=== PATIENT | male | born 1935 | race Caucasian/White ===

== ENCOUNTER → 2019-06-03 | Outpatient (CLI) | payer MEDICARE, BC ==
[~2019-06-03] MED LIST: ALEVE220 MG PO; ASPI81CH; ASPI81CH PO; ATOR10 PO; ATOR20; ENOX40I SC; ERGO400 PO; HYDCHL12.5 PO; HYDCHL25; Hair, Skin & N1 EACH PO; LISI5; METO25ER; NATURAL LUTEIN20 MG PO; PROM25 PO; ROXICODONE5 MG PO; TOCO400 PO; TRAM50 PO; VITAMIN B122500 MC1 PO
[2019-06-06 15:07] LABS: A/G RATIO 1.6 (0.7-1.7); ALBUMIN 4.2 g/dL (2.9-4.4); ALPHA-1-GLOBULIN 0.2 g/dL (0.0-0.4); ALPHA-2-GLOBULIN 0.6 g/dL (0.4-1.0); BETA GLOBULIN 1.1 g/dL (0.7-1.3); GAMMA GLOBULIN 0.8 g/dL (0.4-1.8); GLOBULIN, TOTAL 2.7 g/dL (2.2-3.9); M-SPIKE Not Observed g/dL (Not Observed); PROTEIN, TOTAL, SERUM 6.9 g/dL (6.0-8.5)
[2019-06-07 11:07] LABS: M-SPIKE, % Not Observed % (Not Observed)
[2019-06-14 13:07] LABS: PROTEIN,TOTAL,URINE 4.8 mg/dL (Not Estab.)
== END | disposition home or self-care (01) ==
LOC: LAB EV 10:55 → LAB SHORT 10:55
PROVIDERS: Internal Medicine
DX: R82.90 Unspecified abnormal findings in urine (principal)
CPT/HCPCS: 36415; 81050; 84165; 84166; 86335

== ENCOUNTER 2021-09-04 10:46 | Observation (INO) | payer MEDICARE, BC ==
[~2021-09-04] VITALS: Ht 177.8 cm; Wt 92.0 kg
--- NOTE | 2021-09-04 13:38 | NUR ---
TO [facility] FOR PACEMAKER IMPLANT.
--- NOTE | 2021-09-04 16:10 | NUR ---
PATIENT CAME FROM [facility] TODAY 09/04/21 AT 1530. POD 0 PACEMAKER PLACED IN LEFT SHOULDER PATIENT IS ALERT AND ORIENTED X4. VS ARE WNL AND IS ON RA. PATIENT DENIES PAIN AT THIS TIME. PATIENT AND VERBALIZED UNDERSTANDING OF NOT RAISING THE LEFT ARM ABOVE THE HEAD. GAUZE AND TEGADERM ARE C/D/I ON HIS LEFT SHOULDER. PATIENT IS ABLE TO MOVE FINGERS AND TOES WHEN ASKED. PATIENT IS TOLERATING PO INTAKE. CALL LIGHT WITHIN REACH. IS AT BEDSIDE.
--- NOTE | 2021-09-04 18:48 | NUR ---
SHIFT SUMMARY: POD 0 PACEMAKER NO SIGNIFICANT CHANGES SINCE POST OP. PAIN IS MANAGED WITH PO NORCO. HE IS ABLE TO AMBULATE WITH SBA IN THE ROOM. PATIENT IS TO NOT LIFT HIS LEFT ARM UP OVER HIS HEAD AND TO NOT TAKE ANY BLOOD THINNERS. LEFT SHOULDER HAS GAUZE AND TEGADERM THAT ARE C/D/I. PATIENT TOLERATES PO INTAKE. IS AT BED SIDE. CALL LIGHT WITHIN REACH. THE PLAN IS TO HAVE HIM STAY THE NIGHT TO BE MONITORED AND TO RECIEVE IV ABX. PATIENT SHOULD BE ABLE TO DISCHARGE HOME TOMORROW.
--- NOTE | 2021-09-04 19:39 | NUR ---
RECEIVED REPORT AND ASSUMED CARE OF PT. HE IS LYING QUIETLY IN BED TALKING ON THE PHONE, DENIES ANY NEEDS AT THIS TIME.
[2021-09-05 04:04] LABS: BASOPHILS ABSOLUTE AUTO 0.04 K/mm3 (0.00-0.23); BASOPHILS PERCENT AUTO 1 % (0-2); EOSINOPHILS ABSOLUTE AUTO 0.14 K/mm3 (0.00-0.68); EOSINOPHILS PERCENT AUTO 2 % (0-6); Hematocrit 34.8 % (37.0-53.0); Hemoglobin 11.8 g/dL (13.5-17.5); IMMATURE GRAN ABSOLUTE AUTO 0.06 K/mm3 (0.00-0.10); IMMATURE GRAN PERCENT AUTO 1 % (0-1); LYMPHOCYTES ABSOLUTE AUTO 2.43 K/mm3 (0.84-5.20); LYMPHOCYTES PERCENT AUTO 33 % (21-46); MONOCYTES ABSOLUTE AUTO 0.65 K/mm3 (0.16-1.47); MONOCYTES PERCENT AUTO 9 % (4-13); Mean Corpuscular HGB 32.7 pg (26.0-34.0); Mean Corpuscular HGB Conc 33.9 g/dL (31.5-36.5); Mean Corpuscular Volume 96 fL (80-100); Mean Platelet Volume 10.2 fL (9.1-12.4); NEUTROPHILS ABSOLUTE AUTO 4.14 K/mm3 (1.96-9.15); NEUTROPHILS PERCENT AUTO 56 % (41-73); Platelet Count 216 K/mm3 (150-400); RDW Coefficient Variation 13.3 % (11.7-14.2); RDW Standard Deviation 47.6 fL (35.1-46.3); Red Blood Cell Count 3.61 M/mm3 (4.30-5.90); White Blood Cell Count 7.46 K/mm3 (4.00-11.30)
[2021-09-05 04:23] LABS: Anion Gap 8 mmol/L (6-16); Blood Urea Nitrogen 16 mg/dL (8-24); Bun/Creatinine Ratio 21.4 (12.0-20.0); CO2, Blood 25 mmol/L (21-32); Calcium, Blood 8.6 mg/dL (8.5-10.1); Chloride, Blood 103 mmol/L (98-108); Creatinine, Blood 0.75 mg/dL (0.60-1.20); Glomerular Filtration Rate >60 (60-); Glucose, Blood 111 mg/dL (70-99); Potassium, Blood 3.6 mmol/L (3.5-5.5); Sodium, Blood 136 mmol/L (136-145)
--- NOTE | 2021-09-05 04:57 | NUR ---
SHIFT SUMMARY: NICA IS A&OX4. VSS, NO ACUTE EVENTS OVERNIGHT. HE IS A ONE PERSON STANDBY ASSIST TO HELP HIM REMEMBER NOT TO USE HIS LEFT ARM. HE HAS WORN HIS CPAP DURING THE NIGHT, IS TOLERATING PO INTAKE WELL, AND REPORTS ADEQUATE PAIN CONTROL WITH THE ORAL MEDICATIONS. HE IS URINATING WITHOUT DIFFICULTY AND USES THE CALL LIGHT APPROPRIATELY. IV TO L AC PATENT. HE IS LYING IN BED WITH THE CALL LIGHT IN REACH. WILL REPORT TO DAY SHIFT RN.
[2021-09-05] MEDS ORDERED: Acetaminophen650 M1 PO (11:43)
--- NOTE | 2021-09-05 11:50 | NUR ---
DISCHARGE: PT DC TO HOME AT THIS TIME. VERBALIZED UNDERSTANDING OF INSTRUCTIONS, FOLLOW UP, PROBLEMS TO REPORT AND MEDICATIONS. PT LEFT VIA WHEELCHAIR TO CAR WITH BELONGINGS.
== END 2021-09-05 12:44 | disposition home or self-care (01) ==
LOC: MHTC 10:46 → MEDS 15:29 → MHTC 15:29 → SURS 15:43
PROVIDERS: Internal Medicine Cardiovascular Disease; ADMIT Internal Medicine Cardiovascular Disease
DX: I49.5 Sick sinus syndrome (principal); I10 Essential (primary) hypertension; I25.10 Atherosclerotic heart disease of native coronary artery without angina pectoris; J44.9 Chronic obstructive pulmonary disease, unspecified; E78.5 Hyperlipidemia, unspecified; G47.33 Obstructive sleep apnea (adult) (pediatric); Z87.891 Personal history of nicotine dependence
CPT/HCPCS: 33208; 36415; 71045; 71046; 80048; 85025; 90686; 93005; 93010; 99152; 99153; A9270; C1785; C1894; C1898; J0690; J1580; J1644; J2250; J3010; J7030; J7040; Q9967

== ENCOUNTER 2021-12-04 10:50 | Day surgery (SDC) | payer MEDICARE, BC ==
[~2021-12-04] VITALS: Ht 177.8 cm; Wt 92.5 kg
[~2021-12-04 10:50] MED LIST changes: +Acetaminophen650 M1 PO
[2021-12-04] MEDS ORDERED: ATOR20 (11:24)
== END 2021-12-04 13:16 | disposition home or self-care (01) ==
LOC: ORSCSDS 10:50
PROVIDERS: Internal Medicine Gastroenterology
PROC: 0DBL8ZX Excision of Transverse Colon, Via Natural or Artificial Opening Endoscopic, Diagnostic (ICD-10-PCS; principal; 2021-12-04 12:00)
DX: Z12.11 Encounter for screening for malignant neoplasm of colon (principal); Z86.010 Personal history of colon polyps; Z80.0 Family history of malignant neoplasm of digestive organs; D12.3 Benign neoplasm of transverse colon; K64.8 Other hemorrhoids; K57.30 Diverticulosis of large intestine without perforation or abscess without bleeding; G47.33 Obstructive sleep apnea (adult) (pediatric); I11.9 Hypertensive heart disease without heart failure; E78.5 Hyperlipidemia, unspecified; Z95.0 Presence of cardiac pacemaker; Z87.891 Personal history of nicotine dependence; Z79.82 Long term (current) use of aspirin; Z79.899 Other long term (current) drug therapy
CPT/HCPCS: 88305; J0461; J2405; J2704; J7120

== ENCOUNTER 2022-09-06 10:16 | Day surgery (SDC) | payer MEDICARE, BC ==
[~2022-09-06] VITALS: Ht 175.3 cm; Wt 93.3 kg
[~2022-09-06 10:16] MED LIST changes: +CELE200 PO; +FERRIC X-150150 M1 PO; +HYDCHL25 PO
== END 2022-09-06 13:28 | disposition home or self-care (01) ==
LOC: ORSCSDS 10:16
PROVIDERS: Orthopaedic Surgery
PROC: 01N50ZZ Release Median Nerve, Open Approach (ICD-10-PCS; principal; 2022-09-06 12:00)
DX: G56.03 Carpal tunnel syndrome, bilateral upper limbs (principal); I10 Essential (primary) hypertension; Z95.0 Presence of cardiac pacemaker; G47.33 Obstructive sleep apnea (adult) (pediatric); E78.5 Hyperlipidemia, unspecified; E78.00 Pure hypercholesterolemia, unspecified; Z79.899 Other long term (current) drug therapy
CPT/HCPCS: J0690; J2250; J3010

== ENCOUNTER 2023-01-04 07:14 | Day surgery (SDC) | payer MEDICARE, BC ==
[~2023-01-04] VITALS: Ht 175.3 cm; Wt 90.8 kg
[2023-01-04 10:26] VITALS: BP 143/70
== END 2023-01-04 10:43 | disposition home or self-care (01) ==
LOC: ORSCSDS 07:14
PROVIDERS: Orthopaedic Surgery
PROC: 0JBF0ZX Excision of Left Upper Arm Subcutaneous Tissue and Fascia, Open Approach, Diagnostic (ICD-10-PCS; principal; 2023-01-04 08:45)
DX: M67.412 Ganglion, left shoulder (principal); I10 Essential (primary) hypertension; I25.10 Atherosclerotic heart disease of native coronary artery without angina pectoris; G47.33 Obstructive sleep apnea (adult) (pediatric); Z99.81 Dependence on supplemental oxygen; Z79.899 Other long term (current) drug therapy
CPT/HCPCS: 88304; J0171; J0690; J1100; J2370; J2405; J2704; J2795; J3010; J7120

== ENCOUNTER 2023-08-24 12:07 | Emergency (ER) | payer MEDICARE, BC ==
[~2023-08-24] VITALS: Ht 177.8 cm; Wt 88.9 kg
[2023-08-24 15:00] VITALS: BP 119/67
== END 2023-08-24 15:01 | disposition home or self-care (01) ==
LOC: ER 12:07
DX: T84.020A Dislocation of internal right hip prosthesis, initial encounter (principal); Y79.2 Prosthetic and other implants, materials and accessory orthopedic devices associated with adverse incidents; I10 Essential (primary) hypertension; G47.30 Sleep apnea, unspecified; Z99.89 Dependence on other enabling machines and devices; Z87.891 Personal history of nicotine dependence; Z79.899 Other long term (current) drug therapy; Z88.8 Allergy status to other drugs, medicaments and biological substances
CPT/HCPCS: 27265; 73501; 73502; 96374; 99152; 99284-25; J1170; J2704; J7030

== ENCOUNTER 2023-10-27 21:12 | Emergency (ER) | payer MEDICARE, BC ==
[~2023-10-27] VITALS: Ht 177.8 cm; Wt 88.0 kg
[2023-10-27 21:46] LABS: BASOPHILS ABSOLUTE AUTO 0.03 K/mm3 (0.00-0.23); BASOPHILS PERCENT AUTO 1 % (0-2); EOSINOPHILS ABSOLUTE AUTO 0.11 K/mm3 (0.00-0.68); EOSINOPHILS PERCENT AUTO 2 % (0-6); Hematocrit 32.7 % (37.0-53.0); Hemoglobin 11.3 g/dL (13.5-17.5); IMMATURE GRAN ABSOLUTE AUTO 0.05 K/mm3 (0.00-0.10); IMMATURE GRAN PERCENT AUTO 1 % (0-1); LYMPHOCYTES ABSOLUTE AUTO 2.68 K/mm3 (0.84-5.20); LYMPHOCYTES PERCENT AUTO 43 % (21-46); MONOCYTES ABSOLUTE AUTO 0.41 K/mm3 (0.16-1.47); MONOCYTES PERCENT AUTO 7 % (4-13); Mean Corpuscular HGB 33.3 pg (26.0-34.0); Mean Corpuscular HGB Conc 34.6 g/dL (31.5-36.5); Mean Corpuscular Volume 97 fL (80-100); Mean Platelet Volume 9.7 fL (9.1-12.4); NEUTROPHILS ABSOLUTE AUTO 2.95 K/mm3 (1.96-9.15); NEUTROPHILS PERCENT AUTO 47 % (41-73); NRBC ABSOLUTE 0.02 K/mm3 (0.00-0.02); NRBC Auto 0.3 /100 WBC (0.0-0.2); Platelet Count 226 K/mm3 (150-400); RDW Coefficient Variation 14.6 % (11.7-14.2); RDW Standard Deviation 50.2 fL (35.1-46.3); Red Blood Cell Count 3.39 M/mm3 (4.30-5.90); White Blood Cell Count 6.23 K/mm3 (4.00-11.30)
[2023-10-27 21:59] LABS: Albumin, Blood 4.1 g/dL (3.4-5.0); Albumin/Globulin Ratio 1.2 (0.8-1.8); Bilirubin, Total 0.7 mg/dL (0.1-1.0); Bun/Creatinine Ratio 26.8 (12.0-20.0); Calcium, Blood 8.7 mg/dL (8.5-10.1); Creatinine, Blood 0.82 mg/dL (0.60-1.20); Globulin, Blood 3.4 g/dL (2.2-4.0); Potassium, Blood 3.1 mmol/L (3.5-5.5); Total Protein, Blood 7.5 g/dL (6.4-8.2)
[2023-10-27 23:50] LABS: Phosphorus, Blood 2.8 mg/dL (2.5-4.9)
[2023-10-28] MEDS ORDERED: Magnesium Sulf 2 GM/Water 50ML 50 ML IV ONE (00:30)
[2023-10-28] MEDS ORDERED: Potassium Chloride 20 MEQ/15 ML UDC PO ONE (00:35)
[2023-10-28 02:30] VITALS: BP 114/58
== END 2023-10-28 03:16 | disposition home or self-care (01) ==
LOC: ER 21:12
PROVIDERS: Emergency Medicine
DX: E87.6 Hypokalemia (principal); I10 Essential (primary) hypertension; G47.30 Sleep apnea, unspecified; Z79.899 Other long term (current) drug therapy; Z87.891 Personal history of nicotine dependence; Z88.8 Allergy status to other drugs, medicaments and biological substances
CPT/HCPCS: 71046; 80053; 83605; 83735; 84100; 84484; 85025; 93005; 93010; 96365; 96366; 99284-25; A9270; J3475

== ENCOUNTER 2024-07-13 20:53 | Emergency (ER) | payer OTHER, MEDICARE, BC ==
[~2024-07-13] VITALS: Ht 177.8 cm; Wt 86.2 kg
[2024-07-13] MEDS ORDERED: ELIQUIS5 M3 PO (21:40)
[2024-07-13] MEDS ORDERED: GABA100 PO (21:41)
[2024-07-13] MEDS ORDERED: Bisoprolol Fumar5 MG PO (21:42)
[2024-07-13] MEDS ORDERED: FentaNYL Citrate 50 MCG/ML 2 ML Injection IV ONE (22:25)
[2024-07-13] MEDS ORDERED: Propofol 10mg/ml 20 ml Vial (Procedural) IV SCH (22:35)
[2024-07-13] MEDS ORDERED: NS 1,000 ML IV SCH (22:50)
[2024-07-13 23:30] VITALS: BP 140/79
[2024-07-13] MEDS ORDERED: ACET500 PO (23:56)
== END 2024-07-14 00:25 | disposition home or self-care (01) ==
LOC: ER 20:53
DX: T84.020A Dislocation of internal right hip prosthesis, initial encounter (principal); W01.10XA Fall on same level from slipping, tripping and stumbling with subsequent striking against unspecified object, initial encounter; Z88.8 Allergy status to other drugs, medicaments and biological substances; Z79.899 Other long term (current) drug therapy; I10 Essential (primary) hypertension; E78.5 Hyperlipidemia, unspecified; Z87.891 Personal history of nicotine dependence
CPT/HCPCS: 27265; 73501; 73502; 99152; 99284-25; J2704; J3010; J7030

== ENCOUNTER 2024-08-02 15:00 | Emergency (ER) | payer MEDICARE, BC ==
[~2024-08-02] VITALS: Ht 177.8 cm; Wt 86.2 kg
[~2024-08-02 15:00] MED LIST changes: +ACET500 PO; +Bisoprolol Fumar5 MG PO; +ELIQUIS5 M3 PO; +GABA100 PO
[2024-08-02] MEDS ORDERED: HYDROmorphone HCl/Pf 1MG SYR IV ONE (15:45)
[2024-08-02] MEDS ORDERED: Propofol 10mg/ml 20 ml Vial (Procedural) IV SCH (18:00)
[2024-08-02] MEDS ORDERED: NS 1,000 ML IV ONE (18:10)
[2024-08-02] MEDS ORDERED: NS 1,000 ML IV SCH (18:25)
[2024-08-02 21:00] VITALS: BP 132/74
== END 2024-08-02 21:00 | disposition home or self-care (01) ==
LOC: ER 15:00
DX: M24.451 Recurrent dislocation, right hip (principal); E78.5 Hyperlipidemia, unspecified; I10 Essential (primary) hypertension; W01.0XXA Fall on same level from slipping, tripping and stumbling without subsequent striking against object, initial encounter; Z87.891 Personal history of nicotine dependence; Z79.899 Other long term (current) drug therapy; Z88.8 Allergy status to other drugs, medicaments and biological substances
CPT/HCPCS: 70450; 73501; 73502; J1171; J2704; J7030

== ENCOUNTER 2025-05-10 13:22 | Day surgery (SDC) | payer MEDICARE, BC ==
[~2025-05-10] VITALS: Ht 177.8 cm; Wt 84.7 kg
[~2025-05-10 13:22] MED LIST changes: +Glycopyrrolate 0.2 MG/ML 1MLVIAL ONE; +Ondansetron HCl 2 MG / ML 2ML Vial ONE; +ePHEDrine Sulfate 50 MG/ML 1ML Injection ONE
[2025-05-10 15:23] VITALS: BP 123/60
== END 2025-05-10 15:20 | disposition home or self-care (01) ==
LOC: ORSCSDS 13:22
PROVIDERS: Internal Medicine Gastroenterology
PROC: 0DBK8ZX Excision of Ascending Colon, Via Natural or Artificial Opening Endoscopic, Diagnostic (ICD-10-PCS; principal; 2025-05-10 14:45)
PROC: 0DBL8ZX Excision of Transverse Colon, Via Natural or Artificial Opening Endoscopic, Diagnostic (ICD-10-PCS; principal; 2025-05-10 14:45)
PROC: 0DJ08ZZ Inspection of Upper Intestinal Tract, Via Natural or Artificial Opening Endoscopic (ICD-10-PCS; principal; 2025-05-10 14:45)
DX: R10.13 Epigastric pain (principal); Z86.0101 Personal history of adenomatous and serrated colon polyps; D12.3 Benign neoplasm of transverse colon; D12.2 Benign neoplasm of ascending colon; D64.9 Anemia, unspecified; K44.9 Diaphragmatic hernia without obstruction or gangrene; R14.0 Abdominal distension (gaseous); R19.4 Change in bowel habit; R17 Unspecified jaundice; I48.0 Paroxysmal atrial fibrillation; G47.33 Obstructive sleep apnea (adult) (pediatric); E78.5 Hyperlipidemia, unspecified; I10 Essential (primary) hypertension; Z95.0 Presence of cardiac pacemaker; Z87.891 Personal history of nicotine dependence; Z79.01 Long term (current) use of anticoagulants; Z79.82 Long term (current) use of aspirin; Z79.899 Other long term (current) drug therapy
CPT/HCPCS: 88305; J0461; J2003; J2405; J2704; J7120